=== PATIENT | female | born 1950 | race Caucasian/White ===

== ENCOUNTER 2017-06-10 23:52 | Inpatient (IN) | payer MEDICARE, OTHER ==
[~2017-06-10] VITALS: Ht 165.1 cm; Wt 55.8 kg
[2017-06-11] MEDS ORDERED: [UNRECOGNIZED DRUG - CODE] PO (00:45)
[2017-06-11] MEDS ORDERED: METH10TA2 PO (00:45)
[2017-06-11] MEDS ORDERED: OXYC10TA49 PO (00:45)
[2017-06-11] MEDS ORDERED: CLIN300C11 PO (00:45)
[2017-06-11] MEDS ORDERED: SULF1TAB48 PO (00:45)
--- NOTE | 2017-06-11 01:09 | NUR ---
06/10/2017 @ 2345 - ADMITTED DIRECTLY FROM [facility] IN [place], PATIENT ADMITTED ON 5150 HOLD FOR DTS. PATIENT CAME TO THE UNIT ACCOMPANIED BY 2 FURNITURE FINISHER HELPER PERSONNEL. UPON FACE TO FACE PATIENT REPORTED THAT SHE WANTED TO END HER LIFE BY JUMPING INTO TRAFFIC, SHE N0 LONGER WANTED TO LIVE, SHE PLANNED TO HURT HERSELF BY OVERDOSING ON HEROIN. PATIENT WAS PLACED COMFORTABLY IN BED, AWAKE, ALERT, ORIENTED X3-4, SHOWS NO S/S OF ANY PAIN, RESPIRATION EVEN, BREATHING PATTERN NON-LABORED, NO APPARENT DISTRESS NOTED. STATED THAT SHE HAS NO PLAN OF HURTING HERSELF NOW. SKIN ASSESSMENT DONE, NOTED, RASHES ON BOTH THIGHS, SHOULDERS, DISCOLORATION LEFT ARM, SWELLING NOTED ON THE RIGHT LEG. PATIENT IS UNDER THE PSYCHIATRIC CARE OF DR. RAMAN, AND UNDER THE MEDICAL CARE OF DR. ALBA, PAGED HER FOR MED RECONCILIATION. BELONGINGS WERE INVENTORIED AND CHECKED FOR CONTRABAND, VALUABLES WERE PUT TO SAFE. BED LOCKED AND PLACED ON LOWEST POSITION FOR SAFETY. WILL CONTINUE TO MONITOR Q 15 MINS. TO MAINTAIN SAFETY.
--- NOTE | 2017-06-11 03:45 | NUR ---
PAGED DR. ALBA ABOUT MED RECONCILIATION, AWAITING CALL BACK.
--- NOTE | 2017-06-11 03:46 | NUR ---
CALLED RELATIVE, RADHA, TELEPHONE KEEPS ON RINGING, NO ANSWER. WILL FOLLOW UP IN THE MORNING.
[2017-06-11] MEDS ORDERED: MAG HYDROX/AL HYDROX/SIMETH 30 ML UDC PO PRN (04:00)
[2017-06-11] MEDS ORDERED: ACETAMINOPHEN 325 MG TABLET PO PRN (04:00)
[2017-06-11] MEDS ORDERED: MAGNESIUM HYDROXIDE 30 ML UDC PO PRN (04:00)
--- NOTE | 2017-06-11 07:33 | NUR ---
PATIENT REFUSED SKIN ASSESSMENT AND MRSA SCREEN. ENDORSED TO CHIOMA PEREZ.
[2017-06-11 08:00] VITALS: BP 137/78
--- NOTE | 2017-06-11 10:00 | NUR ---
RN-CO: Patient refused MRSA swab and skin assessment/photos.
--- NOTE | 2017-06-11 13:57 | NUR ---
ASSUMED CARE: RECEIVED PT. IN THE NURSES STATION ON THE PHONE. NO SIGN OF DISTRESS AND NO AGITATION NOTED. WILL CONTINUE TO MONITOR FOR SAFETY.
--- NOTE | 2017-06-11 14:07 | NUR ---
RN-CO: Called Dr Robina Wilson for consult. Left message.
--- NOTE | 2017-06-11 15:12 | NUR ---
MARGAUX DIXON MADE AWARE TO RECONCILE THE MEDS AND SAID HE WILL.
[2017-06-11 16:04] VITALS: BP 115/71
[2017-06-11 21:16] VITALS: BP 105/57
[2017-06-11] MEDS: ZOLPIDEM TARTRATE 5 MG TABLET PO PRN (21:22)
[2017-06-11] MEDS ORDERED: oxyCODONE IR immediate release 5 MG PO PRN (23:00)
[2017-06-12] MEDS ORDERED: CLINDAMYCIN HCL 150 MG CAPSULE PO ONE (06:00)
[2017-06-12] MEDS: CLINDAMYCIN HCL 150 MG CAPSULE PO SCH ×3 (06:09→21:50)
--- NOTE | 2017-06-12 06:28 | NUR ---
GPS RN: PATIENT IS TO BE STARTED CLINDAMYCIN MEDICATIONS 300MG- MEDICATION PULLED OUT FROM OMNICELL BY BUNDLE HELPER-VICKI AND GIVEN TO PATIENT ORDERED. WILL CONTINUE TO MONITOR PATIENT.
[2017-06-12 08:00] VITALS: BP 129/70
[2017-06-12] MEDS: ESCITALOPRAM OXALATE (10 MG) 10 MG TABLET PO SCH (09:00)
[2017-06-12 09:19] LABS: ALBUMIN 2.6 g/dL (3.4-5.0); BILIRUBIN,TOTAL 0.2 mg/dL (0.2-1.0); CREATININE 1.1 mg/dL (0.6-1.3); POTASSIUM 4.4 mmol/L (3.5-5.1); TOTAL PROTEIN, SERUM 7.1 g/dL (6.4-8.2)
--- NOTE | 2017-06-12 09:24 | NUR ---
GPS/RN-NOTES PATIENT REFUSED LEXAPRO 5MG P.O STATED" I DON'T TAKE LEXAPRO AT ALL, ITS NOT WORKING FOR ME". OFFERED X3.
[2017-06-12] MEDS: SULFAMETH/TRIMETH 800/160 MG 1 UDTAB TABLET PO SCH ×2 (10:43→21:50)
[2017-06-12] MEDS ORDERED: ESCITALOPRAM OXALATE (10 MG) 10 MG TABLET PO ONE (12:00)
--- NOTE | 2017-06-12 12:05 | NUR ---
GPS/RN-NOTES DR. RAMAN SEEN THE PATIENT AND MADE AWARE OF PATIENT REFUSAL OF LEXAPRO. PATIENT AGREED TO COMPLY WITH MEDICATIONS. PATIENT TOOK LEXAPRO 0.5MG P.O AT THIS TIME.
[2017-06-12 13:12] LABS: CHOLESTEROL 128 mg/dL (<200); HDL CHOLESTEROL 31 mg/dL (40-60); LDL 86 mg/dL (0-99); TRIGLYCERIDES 84 mg/dL (30-150)
[2017-06-12 16:02] VITALS: BP 114/66
[2017-06-12 20:02] VITALS: BP 118/57
[2017-06-12] MEDS: ZOLPIDEM TARTRATE 5 MG TABLET PO PRN (21:50)
[2017-06-13] MEDS: CLINDAMYCIN HCL 150 MG CAPSULE PO SCH ×3 (05:14→21:17)
[2017-06-13 08:00] VITALS: BP 129/74
[2017-06-13] MEDS: SULFAMETH/TRIMETH 800/160 MG 1 UDTAB TABLET PO SCH ×2 (09:18→21:17)
[2017-06-13] MEDS: ESCITALOPRAM OXALATE (10 MG) 10 MG TABLET PO SCH (09:18)
[2017-06-13 15:45] VITALS: BP 125/78
--- NOTE | 2017-06-13 16:57 | NUR ---
Initial Discharge Plan: Pt is homeless and has no contact telephone #. Pt would like to return to the [facility]. Per pt, placement was pending for her through the [facility]. Pt would like to continue to obtain housing through the [facility] upon discharge. LIZ contacted Yumi from [phone] (# was not in service). LIZ will follow up to ensure pt is properly and safely discharged.
[2017-06-13 20:45] VITALS: BP 147/79
[2017-06-14] MEDS: ZOLPIDEM TARTRATE 5 MG TABLET PO PRN ×2 (01:26→21:56)
[2017-06-14] MEDS: CLINDAMYCIN HCL 150 MG CAPSULE PO SCH ×3 (05:47→21:24)
[2017-06-14] MEDS: ESCITALOPRAM OXALATE (10 MG) 10 MG TABLET PO SCH (09:08)
[2017-06-14] MEDS: SULFAMETH/TRIMETH 800/160 MG 1 UDTAB TABLET PO SCH ×2 (09:10→21:24)
[2017-06-14 09:38] VITALS: BP 110/69
[2017-06-14 16:34] VITALS: BP 153/65
[2017-06-14 20:17] VITALS: BP 126/56
[2017-06-15] MEDS: CLINDAMYCIN HCL 150 MG CAPSULE PO SCH ×3 (05:09→20:37)
[2017-06-15 08:00] VITALS: BP 131/71
[2017-06-15] MEDS: ESCITALOPRAM OXALATE (10 MG) 10 MG TABLET PO SCH (08:12)
--- NOTE | 2017-06-15 11:13 | NUR ---
Discharge Planning: LIZ contacted [facility] in [facility] for discharge planning purposes. LIZ spoke to Jennifer Wreath Machine Tender to assess if pt was a client of their facilities and if so can program facilitate [place] [facility] once pt is discharged. LIZ was unable to speak to the Officer of the Day however SW was informed that I would be receiving a call back. In addition, LIZ helped pt contact her banking institution to see if she had any funds available in the event she needed to rent a hotel room upon discharge (which she did). Pt agreed to discharge to a hotel if the need arose. LIZ will follow up to ensure pt is properly and safely discharged.
[2017-06-15 15:43] VITALS: BP 121/79
[2017-06-15 20:00] VITALS: BP 127/67
[2017-06-15] MEDS: ZOLPIDEM TARTRATE 5 MG TABLET PO PRN (21:40)
--- NOTE | 2017-06-15 23:13 | NUR ---
PATIENT ASLEEP AT THIS TIME.
[2017-06-16] MEDS: CLINDAMYCIN HCL 150 MG CAPSULE PO SCH ×3 (05:28→20:36)
[2017-06-16 08:00] VITALS: BP 121/63
[2017-06-16] MEDS: ESCITALOPRAM OXALATE (10 MG) 10 MG TABLET PO SCH (08:35)
--- NOTE | 2017-06-16 16:36 | NUR ---
Discharge Planning: SW received a message from Radha Reyes from the [facility] informing that pt was a (previous) client linking back to services however still needed to go through the intake process. Pt needs to call Robina Maynard in order to see if she is approved for MH services. SW will provide pt with this information to assist in her mental health functioning.
--- NOTE | 2017-06-16 16:43 | NUR ---
Discharge Planning: SW spoke to pt for discharge planning purposes. SW checked in with pt in order to discuss her options upon discharge. LIZ provided pt with an update about the [facility], including who to contact for an intake session. LIZ inquired again about friends and or family pt may have that will help her upon her discharge, which pt denied having anyone. SW discussed board and care/assisted living options upon pts discharge. Pt declined and stated, I'm not giving all my money to them then I'm left with nothing." SW discussed homeless shelters in the [facility] as a resource for her, however pt refused and stated, "I don't want to stay in any of those places." SW discussed the possibility of pt staying in a hotel in the [facility] for a short while, until she gets back on her feet. Pt however declined and stated, "Those places are too expensive and I'm not giving my money to them." SW discussed locating a low cost hotel just so that pt does not end up homeless upon discharge; pt declined once again. LIZ discussed transportation options upon pts discharge (i.e. bus tokens). LIZ also inquired about any possible close relatives and or friends in the area pt can take a taxi to upon discharge (which pt denied). LIZ will continue to follow up to ensure pt is properly and safely discharged.
[2017-06-16 16:56] VITALS: BP 117/77
[2017-06-16 20:00] VITALS: BP 118/68
[2017-06-16] MEDS: ZOLPIDEM TARTRATE 5 MG TABLET PO PRN (20:36)
[2017-06-16] MEDS: LORAZEPAM 0.5 MG TABLET PO PRN (22:36)
[2017-06-17] MEDS: CLINDAMYCIN HCL 150 MG CAPSULE PO SCH ×3 (05:07→21:23)
[2017-06-17 08:00] VITALS: BP 132/79
[2017-06-17] MEDS: ESCITALOPRAM OXALATE (10 MG) 10 MG TABLET PO SCH (08:11)
--- NOTE | 2017-06-17 09:23 | NUR ---
DR. RAMAN GAVE AN ORDER TO D/Dennys WEBB AND D/C TO [facility] AND TO FOLLOW UP WITH [facility]. SPOKE TO FLASH OVER THE FACILITY AND SAID THEY WILL ACCEPT HER TODAY. Addendum: 06/17/17 at 0939 by MAICOL REYNA RN WRONG PT.
[2017-06-17 16:00] VITALS: BP 126/76
[2017-06-17 20:00] VITALS: BP 122/64
[2017-06-17] MEDS: ZOLPIDEM TARTRATE 5 MG TABLET PO PRN (21:31)
--- NOTE | 2017-06-17 21:32 | NUR ---
C/O INSOMNIA, AMBIEN 5 MG TAB 1 PO GIVEN.
[2017-06-18] MEDS: CLINDAMYCIN HCL 150 MG CAPSULE PO SCH ×3 (04:33→21:10)
[2017-06-18 08:00] VITALS: BP 111/58
[2017-06-18] MEDS: ESCITALOPRAM OXALATE (10 MG) 10 MG TABLET PO SCH (08:58)
[2017-06-18 16:26] VITALS: BP 128/68
[2017-06-18 19:50] VITALS: BP 121/74
[2017-06-18] MEDS: ZOLPIDEM TARTRATE 5 MG TABLET PO PRN (21:10)
[2017-06-18] MEDS: LORAZEPAM 0.5 MG TABLET PO PRN (22:43)
--- NOTE | 2017-06-19 00:01 | NUR ---
Pt has been withdrawn, isolative, with depressed mood, & resistant to interactions with peers but compliant & redirectable.
[2017-06-19] MEDS: CLINDAMYCIN HCL 150 MG CAPSULE PO SCH ×3 (05:55→21:29)
[2017-06-19] MEDS: ESCITALOPRAM OXALATE (10 MG) 10 MG TABLET PO SCH (08:10)
[2017-06-19 09:46] VITALS: BP 124/58
--- NOTE | 2017-06-19 11:12 | NUR ---
RN-CO: PATEINT WAS SEEN AND EXAMINED BY DR RAMAN WITH ORDERS TO DISCONTINUE HOLD AND DISCHARGE PATIENT TODAY. PATIENT REMAINED CALM AND COOPERATIVE TO CARE. SHE IS SELFCARE. PT DENIED SUICIDAL AND HI. DENIED AH/VH. PATIENT REFUSED SKIN REASSESSMENT.
--- NOTE | 2017-06-19 12:18 | NUR ---
RN-CO: PATIENT REMAIN CALM AND COOPERATIVE. DR HENDRICKS SEEN AND EXAMINED THE PATIENT AND MEDICALLY CLEARED THE PATIENT FOR DISCHARGE.
--- NOTE | 2017-06-19 12:48 | NUR ---
RN-CO: PATIENT REFUSED NOW TO BE DISCHARGE, SHE DON'T WANT TO SIGN ALL THE DISCHARGE PAPERS. SHE SAID " I DON'T WANT TO GO TO [facility]" SHEEP STICKER IS WILLING TO GIVE HER TOKENS TO ACCOMMODATE HER. CALLED DR RAMAN AND INFORMED HIM ABOUT THE PATIENT'S REFUSAL , DR RAMAN STATED THAT SHEEP STICKER NEED TO GIVE HER MEANS TO GO BACK TO [facility]. OR HE WILL CANCEL THE DISCHARGE.
--- NOTE | 2017-06-19 13:24 | NUR ---
RN-CO: I provided the patient of the complete address and telephone number of "[facility]" where she stated that she want to go there. tel number [phone] . I informed the home health care worker Martha that the patient wants to be discharge in [facility] in [facility]. Patient stated to me that she has $30.00 and a VISA card but she wanted to go to [facility]. I let the patient used the unit phone to call "[facility]."
--- NOTE | 2017-06-19 14:18 | NUR ---
RN-CO: Dr Diop made aware that (F[facility]ia) Director is coordinating with the administration if they going to provide the patient transportation going to [facility] as per Martha ironworker apprentice shop. Suggested to Dr Diop that it will be safer if we will discharge her tomm. morning so she can be at " [facility]" on time. Dr Diop ok'd to cancel the discharge today.
[2017-06-19 16:00] VITALS: BP 112/62
[2017-06-19 19:49] VITALS: BP 110/69
[2017-06-19] MEDS: ZOLPIDEM TARTRATE 5 MG TABLET PO PRN (21:29)
[2017-06-20] MEDS: CLINDAMYCIN HCL 150 MG CAPSULE PO SCH ×3 (05:00→21:20)
[2017-06-20 08:00] VITALS: BP 100/50
[2017-06-20] MEDS: ESCITALOPRAM OXALATE (10 MG) 10 MG TABLET PO SCH (09:56)
[2017-06-20] MEDS ORDERED: diphenhydrAMINE HCL 25 MG CAPSULE PO PRN (12:00)
--- NOTE | 2017-06-20 12:00 | NUR ---
RN NOTES GET PATIENT SCRATCHING SELF ALL OVER THE BODY, PICTURE TAKEN, CALLED DR HENDRICKS AND GET ORDER SKIN SCRAPING, AND BENADRYL 25 MG PO PRN, ORDER TAKEN AND CARRIED OUT.
--- NOTE | 2017-06-20 12:10 | NUR ---
RN NOTES SEEN PATIENT BY DR HENDRICKS, GET VERBAL ORDER CONTACT ISOLATION PRECAUTION, ORDER TAKEN AND CARRIED OUT.
--- NOTE | 2017-06-20 12:26 | NUR ---
Discharge Planning: SW cancelled pts scheduled transportation (with [facility]; [phone]) to [facility] as a result of pt requiring medical treatment. Pt was to be discharged to [facility] on this day. LIZ will follow up and continue planning for discharge once pt is medically cleared.
--- NOTE | 2017-06-20 13:42 | NUR ---
rn notes administered bendryl 25 mg po prn for itching. continued monitoring.
[2017-06-20 16:27] VITALS: BP 128/58
[2017-06-20] MEDS ORDERED: hydrOXYzine PAMOATE 25 MG CAPSULE PO PRN ×2 (17:30→19:00)
--- NOTE | 2017-06-20 18:00 | NUR ---
RN NOTES GET RESULT FROM PATHOLOGY OF SKIN SCRAPING AND PATIENT IS NEGATIVE FOR SCABIES, D/C ISOLATION. PATIENT STILL C/O ITCHING. CALLED AND NOTIFIED DR HENDRICKS GET ORDER VISTARIL 50 MG PO TID PRN. ORDER TAKEN AND CARRIED OUT.
[2017-06-20] MEDS ORDERED: hydrOXYzine PAMOATE 50 MG CAPSULE PO PRN (18:30)
--- NOTE | 2017-06-20 19:10 | NUR ---
rn notes administered Vistaril 50 mg po prn for itching, per patient request, continued monitoring. endorsed oncoming nurse for stephany.
[2017-06-20 20:25] VITALS: BP 115/70
[2017-06-20] MEDS: ZOLPIDEM TARTRATE 5 MG TABLET PO PRN (21:50)
[2017-06-21] MEDS: CLINDAMYCIN HCL 150 MG CAPSULE PO SCH (05:17)
[2017-06-21 08:00] VITALS: BP 102/56
[2017-06-21] MEDS: ESCITALOPRAM OXALATE (10 MG) 10 MG TABLET PO SCH (09:21)
--- NOTE | 2017-06-21 10:30 | NUR ---
RN-CO: DR RAMAN ORDERED TO DISCHARGE THE PATIENT TODAY VIA TELEPHONE ORDER. PATIENT REMAINED CALM AND COOPERATIVE TO CARE. DENIED SUICIDAL AND HOMICIDAL IDEATION. DENIED COMMAND HALLUCINATION. PATIENT WAS CLEARED FROM SCABIES. (RESULTED ) ALL RESOURCES , ADDRESSES, TELEPHONE NUMBERS OF HER DESTINATION WAS GIVEN TO HER AND SHE VERBALIZED UNDERSTANDING. ALL BELONGINGS AND VALUABLES WERE GIVEN BACK TO THE PATIENT. DR HENDRICKS MEDICALLY CLEARED THE PATIENT.
--- NOTE | 2017-06-21 11:25 | NUR ---
GPS/RN-NOTES PATIENT WAS DISCHARGE TODAY TO [facility]. DR. RAMAN AND DR. HENDRICKS MADE AWARE OF PATIENT DISCHARGE AND AGREES OF THE DISCHARGE. ALL DISCHARGE MEDICATIONS WAS REVIEWED WITH THE PATIENT WITH UNDERSTANDING. RX WAS GIVEN TO THE PATIENT ALSO ADDITIONAL RESOURCES LIST WAS GIVEN TO HER. PATIENT DID NOT VERBALIZE SI/HI,DENIES VISUAL/AUDITORY HALLUCINATIONS AT THE TIME OF DISCHARGE. PATIENT LEFT THE UNIT IN STABLE CONDITION AMBULATORY,ALERT ORIENTED X4, AND LEFT WITH ALL HER BELONGINGS. PATIENT WAS ASSISTED IN THE LOBBY BY ONE [employer] SQL SERVER DEVELOPER STAFF FOR SAFETY. PATIENT HAD NO FAMILY PER PATIENT AND RECORD TO NOTIFY OF THE DISCHARGE.
--- NOTE | 2017-06-21 12:35 | NUR ---
Discharge Note: Patient will be discharged to [facility] [address] [place] [address] via taxi. Pt has been notified and is in agreement. Pt was offered placement (i.e. senior care facility, assisted living, and board and Care) however declined. Pt insisted on returning to the city of [facility] and asked to be transported to a hotel. SW located a hotel near the [facility], where she plans on going to for mental health services. Pt reported that she would re engage program to receive mental health services on this date. Pt [facility] [address] [facility] [address]; for [facility] services. LIZ attempted to schedule a follow up appointment for pt however wqas told that pt needed to call and schedule her own appointment. Pt was also referred to [facility]; [address] [facility] [address], for Mental Health & Psychiatric Services. Pt needs to call program and ask for Robina Maynard to schedule an appointment for an intake. Pt understands this and agreed to follow up in order to receive mental health services; including housing. Pt was also provided with an additional referral to a hotel; [facility], [address] [place] [address]; ; in the event. LIZ contacted both hotels and confirmed they have vacancies on this date.
== END 2017-06-21 11:25 | disposition home or self-care (01) | DRG 881 ==
LOC: GPS 23:52
PROVIDERS: ADMIT Psychiatry & Neurology Psychiatry; ATTEND Nurse Practitioner Acute Care
DX: F32.9 Major depressive disorder, single episode, unspecified (principal); E44.0 Moderate protein-calorie malnutrition; F23 Brief psychotic disorder; L03.114 Cellulitis of left upper limb; F17.210 Nicotine dependence, cigarettes, uncomplicated; Z90.710 Acquired absence of both cervix and uterus; Z85.42 Personal history of malignant neoplasm of other parts of uterus; Z68.20 Body mass index [BMI] 20.0-20.9, adult; F19.10 Other psychoactive substance abuse, uncomplicated; G31.84 Mild cognitive impairment of uncertain or unknown etiology
CPT/HCPCS: 36415; 80053-TC; 80061-TC; Q0163; Q0177